=== PATIENT | female | born 1955 | race Two or more races ===

== ENCOUNTER 2018-02-23 20:56 | Observation (INO) | payer MEDICARE ==
[~2018-02-23] VITALS: Ht 162.6 cm; Wt 101.2 kg
[2018-02-23 21:37] LABS: BASOPHILS # (AUTO) 0.1 (0.0-0.1); BASOPHILS % 0.7 % (0.0-1.0); EOSINOPHILS # (AUTO) 0.3 (0.0-0.4); HEMATOCRIT 41.8 % (34.2-44.1); HEMOGLOBIN 13.4 g/dL (12.0-16.0); LYMPHOCYTES # (AUTO) 3.7 (1.0-3.2); LYMPHOCYTES % 41.2 % (18.0-39.1); MEAN CORPUSCULAR HEMOGLOBIN 26.2 pg (28-32); MEAN CORPUSCULAR HGB CONC 32.1 g/dL (31-35); MEAN CORPUSCULAR VOLUME 81.8 fL (81-99); MONOCYTES # (AUTO) 0.6 (0.2-0.8); NEUTROPHILS # (AUTO) 4.2 (2.1-6.9); NEUTROPHILS % 47.6 % (38.7-80.0); PLATELET COUNT 291 x10e3/uL (140-360); RED BLOOD COUNT 5.11 x10e6/uL (3.6-5.1)
[2018-02-23 21:39] LABS: BILIRUBIN,URINE NEGATIVE (NEGATIVE); CLARITY,URINE SL CLOUDY (CLEAR); COLOR,URINE YELLOW (YELLOW); KETONES,URINE NEGATIVE (NEGATIVE); LEUKOCYTE ESTERASE ,URINE TRACE (NEGATIVE); NITRITE,URINE NEGATIVE (NEGATIVE); PROTEIN,URINE DIPSTICK NEGATIVE (NEGATIVE); URINE UROBILINOGEN 0.2 mg/dL (0.2 - 1)
[2018-02-23 21:50] LABS: ALBUMIN 3.9 g/dL (3.5-5.0); ALBUMIN/GLOBULIN RATIO 1.1 (0.8-2.0); ANION GAP 11.2 mmol/L (8-16); CALCIUM 11.5 mg/dL (8.4-10.2); CREATININE, SERUM 1.08 mg/dL (0.57-1.11); POTASSIUM 4.2 mmol/L (3.5-5.1)
--- NOTE | 2018-02-23 21:53 | Diagnostic Imaging Report ---
EXAMINATION: Head CT HISTORY: Altered mental status, syncope COMPARISON: None. TECHNIQUE: Multidetector axial images were obtained without contrast from the foramen magnum to the vertex . The images were reconstructed using brain and bone algorithms. Thin section brain images were reformatted into coronal and sagittal planes. Intravenous contrast: None. Motion/streaking artifact limits the evaluation of the skull base and posterior cranial fossa. FINDINGS: Parenchyma: 1. No abnormal densities. 2. No mass or hemorrhage. No CT evidence of acute territorial vascular insult. Extra-axial spaces:No abnormal density. No extra-axial fluid collections Brain volume: Normal for age. Ventricles: No hydrocephalus or displacement. Arteries: No density suggestive of thrombus. Dural sinuses: No abnormal density. Extra-axial spaces: No abnormal density. Foramen magnum: No Chiari malformation. Possible upper cervical spinal canal narrowing, only partially visualized, this may be artifactual due to positioning. Sella: No obvious mass. Paranasal/mastoid sinuses: Imaged portions unremarkable. Skull/Scalp: No lytic or blastic lesions. No fractures. IMPRESSION: No intracranial abnormalities. Possible narrowing of the upper cervical spinal canal. Signed by: Dr. Smita Felix M.D. on 02/23/2018 9:49 PM
[2018-02-23 21:56] LABS: CREATINE KINASE MB 13.9 ng/mL (0-5.0)
[2018-02-23 21:58] LABS: EPITHELIAL CELLS,URINE FEW /LPF; MUCUS,URINE MODERATE (RARE); WBC,URINE (MAN) 0-5 /HPF (0-5)
--- NOTE | 2018-02-23 22:01 | Diagnostic Imaging Report ---
EXAMINATION: CHEST SINGLE (PORTABLE) INDICATION: Syncopal episode COMPARISON: None FINDINGS: TUBES and LINES: None. LUNGS: Lungs are well inflated. Lungs are clear. There is mild prominence of the central pulmonary vasculature, consistent with pulmonary venous congestion. PLEURA: No pleural effusion or pneumothorax. HEART AND MEDIASTINUM: The cardiomediastinal silhouette is unremarkable. BONES AND SOFT TISSUES: No acute osseous lesion. Degenerative changes of the right acromioclavicular joint Soft tissues are unremarkable. UPPER ABDOMEN: No free air under the diaphragm. IMPRESSION: No acute thoracic abnormality. Signed by: Dr. Pako Fonseca M.D. on 02/23/2018 9:57 PM
[2018-02-23] MEDS ORDERED: ASPIRIN 81 MG CHEW TAB PO ONE (22:30)
[2018-02-23] MEDS ORDERED: ONDANSETRON HCL INJ 2 MG/ML VIAL IV PRN (22:30)
--- OUTSIDE RECORDS SUMMARY | 2018-02-23 22:45 | XMS REPORT ---
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 Allergies, Adverse Reactions, Alerts This patient has no known allergies or adverse reactions. Medications This patient has no known medications. Results Test Description Test Time Test Comments Text Results Atomic Results Result Comments CT BRAIN WO [place] [address] Patient Name: DANETTE PANTOJA MR #: [id number] : 1955 Age/Sex: 62/F Req #: [id number] Adm Physician: Ordered by: ZEINAB DORADO MD Report #: [id number] Location: ER Room/Bed: ___ Procedure: [id number] CT/CT BRAIN WO Exam Date: 02/23/18 Exam Time: 2134 REPORT STATUS: Signed EXAMINATION: Head CT HISTORY: Altered mental status, syncope COMPARISON: None. TECHNIQUE: Multidetector axial images were obtained without contrast from the foramen magnum to the vertex . The images were reconstructed using brain and bone algorithms. Thin section brain images were reformatted into coronal and sagittal planes. Intravenous contrast: None. Motion/streaking artifact limits the evaluation of the skull base and posterior cranial fossa. FINDINGS: Parenchyma: 1. No abnormal densities. 2. No mass or hemorrhage. No CT evidence of acute territorial vascular insult. Extra-axial spaces:No abnormal density. No extra-axial fluid collections Brain volume: Normal for age. Ventricles: No hydrocephalus or displacement. Arteries: No density suggestive of thrombus. Dural sinuses: No abnormal density. Extra-axial spaces: No abnormal density. Foramen magnum: No Chiari malformation. Possible upper cervical spinal canal narrowing, only partially visualized, this may be artifactual due to positioning. Sella: No obvious mass. Paranasal/mastoid sinuses: Imaged portions unremarkable. Skull/Scalp: No lytic or blastic lesions. No fractures. IMPRESSION: No intracranial abnormalities. Possible narrowing of the upper cervical spinal canal. Signed by: Dr. Kaleigh Felix M.D. on 02/23/2018 9:49 PM Dictated By: KALEIGH FELIX MD 48 COPY TO: ZEINAB DORADO MD CHEST SINGLE (PORTABLE) [place] [address] Patient Name: DANETTE PANTOJA MR #: [id number] : 1955 Age/Sex: 62/F Req #: [id number] Adm Physician: Ordered by: ZEINAB DORADO MD Report #: [id number] Location: ER Room/Bed: ___ Procedure: [id number] DX/CHEST SINGLE (PORTABLE) Exam Date: 02/23/18 Exam Time: 2134 REPORT STATUS: Signed EXAMINATION: CHEST SINGLE (PORTABLE) INDICATION: Syncopal episode COMPARISON: None FINDINGS: TUBES and LINES: None. LUNGS: Lungs are well inflated. Lungs are clear. There is mild prominence of the central pulmonary vasculature, consistent with pulmonary venous congestion. PLEURA: No pleural effusion or pneumothorax. HEART AND MEDIASTINUM: The cardiomediastinal silhouette is unremarkable. BONES AND SOFT TISSUES: No acute osseous lesion. Degenerative changes of the right acromioclavicular joint Soft tissues are unremarkable. UPPER ABDOMEN: No free air under the diaphragm. IMPRESSION: No acute thoracic abnormality. Signed by: Dr. Pako Fonseca M.D. on 02/23/2018 9:57 PM Dictated By: PAKO WELLINGTON MD 56 Transcribed By: SHAILESH on 02/23/182156 COPY TO: ZEINAB DORADO MD
[2018-02-23] MEDS ORDERED: PREDNISONE5 MG PO (22:58)
[2018-02-23] MEDS ORDERED: ULTRAM 50MG50 MG PO (22:58)
[2018-02-23] MEDS ORDERED: ATORVASTATIN CA20 MG PO (22:58)
[2018-02-23] MEDS ORDERED: PROAIR HFA INH8.5 GM INH (22:58)
[2018-02-23] MEDS ORDERED: UMECLIDINIUM INH (23:06)
[2018-02-23] MEDS ORDERED: TRAMADOL HCL 50 MG TAB PO PRN (23:30)
[2018-02-23] MEDS ORDERED: ALBUTEROL SULFATE HFA 8GM INHALATION AEROSOL INH PRN (23:30)
[2018-02-24] VITALS (9 sets, daily range): BP systolic 100–133; BP diastolic 57–94
[2018-02-24 07:21] LABS: BASOPHILS # (AUTO) 0.1 (0.0-0.1); BASOPHILS % 0.6 % (0.0-1.0); EOSINOPHILS # (AUTO) 0.3 (0.0-0.4); EOSINOPHILS % 3.5 % (0.0-6.0); HEMATOCRIT 40.1 % (34.2-44.1); HEMOGLOBIN 12.8 g/dL (12.0-16.0); LYMPHOCYTES # (AUTO) 3.7 (1.0-3.2); LYMPHOCYTES % 44.3 % (18.0-39.1); MEAN CORPUSCULAR HEMOGLOBIN 26.3 pg (28-32); MEAN CORPUSCULAR HGB CONC 31.9 g/dL (31-35); MEAN CORPUSCULAR VOLUME 82.5 fL (81-99); MONOCYTES # (AUTO) 0.7 (0.2-0.8); MONOCYTES % 8.2 % (4.4-11.3); NEUTROPHILS # (AUTO) 3.6 (2.1-6.9); NEUTROPHILS % 42.9 % (38.7-80.0); PLATELET COUNT 270 x10e3/uL (140-360); RED BLOOD COUNT 4.86 x10e6/uL (3.6-5.1); RED CELL DISTRIBUTION WIDTH 15.2 % (11.7-14.4)
[2018-02-24 07:46] LABS: ALBUMIN 3.4 g/dL (3.5-5.0); ALBUMIN/GLOBULIN RATIO 1.1 (0.8-2.0); ANION GAP 11.2 mmol/L (8-16); CALCIUM 10.5 mg/dL (8.4-10.2); CREATININE, SERUM 1.06 mg/dL (0.57-1.11); POTASSIUM 4.2 mmol/L (3.5-5.1)
[2018-02-24 08:07] LABS: CREATINE KINASE 302 IU/L (29-168)
[2018-02-24] MEDS: PREDNISONE 5 MG TAB PO SCH (08:52)
--- NOTE | 2018-02-24 12:18 | History and Physical ---
CHIEF COMPLAINT: Syncopal episode. HISTORY OF PRESENT ILLNESS: Patient is a 62-year-old female with history of rheumatoid arthritis and high calcium level. The patient apparently had an argument with her and subsequently passed out while she was sitting in the restroom on the toilet. The patient could not remember what happened. She did have one episode approximately 1 year ago where she had a complete workup, but they did not find any significant abnormality. The patient is currently stable. She had no complaint at this time. She had multiple preliminary workups in the emergency room. The laboratory workup otherwise unremarkable CBC. She had a slightly elevated CK level of 517. CK-MB is 13.4. Her troponin I is negative, however. Total protein is normal in the emergency room. The abnormality including a calcium level of 11.5. Patient was told that she had a high calcium level and she is supposed to get some treatment once a week; however, the patient does not know the cause. PAST MEDICAL HISTORY: Rheumatoid arthritis, hyperlipidemia, osteoarthritis, and COPD. PAST SURGICAL HISTORY: Nephrectomy possible on the right, for which she could not recall. SOCIAL HISTORY: Patient is a smoker. She does not use alcohol. No recreational drugs. ALLERGIES: NO KNOWN ALLERGIES. HOME MEDICATIONS: ProAir, Lipitor, prednisone, tramadol, and inhaler. PHYSICAL EXAMINATION VITAL SIGNS: Temperature is 98, blood pressure 100/59, pulse rate 50, respirations 18. GENERAL: The patient is not in acute distress. She is awake. HEENT: Normocephalic, atraumatic, anicteric. NECK: Supple grossly. PULMONARY: Diminished breath sounds. CARDIOVASCULAR: Bradycardia. ABDOMEN: Soft. Unremarkable. EXTREMITIES: No cyanosis or edema. NEUROLOGIC: There is no gross focal deficit. LABORATORY: Sodium is 139, potassium 4.2, chloride 106, bicarb 26, BUN 13, creatinine 1.0, glucose 140. WBC is 8.3, hemoglobin 12.8, hematocrit 40, platelets 270. Calcium level was 11.5. IMPRESSION 1. Syncope. 2. Episodic bradycardia. 3. Hypercalcemia. 4. Smoker. 5. Baseline blood pressure. PLAN: CT of the chest without IV contrast. MRI of the cervical spine without contrast due to possible narrowing of C spinal canal on CT of the brain. Carotid Doppler, echocardiogram. Consultation with Dr. David Nelson. Continue with home medication with some adjustment. DVT prophylaxis. Baby aspirin. Job#: [id number] VA
[2018-02-24 16:40] LABS: CREATINE KINASE 250 IU/L (29-168)
--- NOTE | 2018-02-24 17:21 | Consultation ---
DATE OF CONSULTATION: February 24, 2018 CARDIOLOGY CONSULTATION REASON FOR CONSULTATION: Syncope. HISTORY OF PRESENT ILLNESS: Mrs. Rachel Santana is a 62-year-old female who states that she came in to the emergency room via the paramedics after a witnessed syncopal episode by her family. Her daughter is at the bedside and provides most of this history. Her daughter reports that the patient complained of chest pain prior to the syncopal episode. She was sitting down watching TV and complained of her chest hurting. Shortly after that, she got up and was ambulating to the bathroom. A family member followed her and found her slumped over on the toilet. They also report her body shaking from head to toe at the same time. This episode lasted close to 1 hour. She reports a past medical history of a prior episode that was similar 2 years ago and also a stroke last year in December 2016. At this moment, the patient denies any chest pain, shortness of breath, palpitations, cough, dizziness, fever or chills. She states that she feels well. PAST MEDICAL HISTORY: Includes syncope, stroke, hyperlipidemia. REVIEW OF SYSTEMS: Negative, except as mentioned above. PAST SURGICAL HISTORY: Nephrectomy due to a kidney mass 9 years ago on the right side. 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 She has 4 children. She is a smoker of 3 to 4 cigarettes every day and is . FAMILY HISTORY: Noncontributory. PHYSICAL EXAMINATION VITALS: Temperature 96.5, pulse 50, respiratory rate 20. Blood pressure 100/59. Oxygen saturation 97% on room air. GENERAL: Alert and oriented times 3. Resting comfortably in the bed. Does not appear to be in any distress right now. NECK: Supple. No JVD noted. No carotid bruits. LUNGS: Clear to auscultation throughout. No wheezing. No rhonchi. No crackles. CARDIOVASCULAR: Regular rate and rhythm. Normal S1, S2. No S3 or S4 auscultated. ABDOMEN: Rounded, soft, nontender. EXTREMITIES: No edema. There are 2+ pedal pulses. CARDIOVASCULAR MEDICATIONS 1. Lovenox 40 mg subcutaneous daily. 2. Aspirin 81 p.o. daily. 3. Atorvastatin 20 p.o. daily. LABS: WBC 8.27, hemoglobin 12.8, hematocrit 40.1, platelets 270. Sodium 139, potassium 4.2, BUN 13, creatinine 1.06, creatine kinase 302, CK-MB 7.60, troponin 0.001. TSH 1.980. Brain CT with possible narrowing of the upper cervical spinal canal. Chest x-ray with no acute abnormalities. Carotid Doppler ordered. TELEMETRY: Sinus ritu. ASSESSMENT 1. Syncope episode. 2. Seizure-like activity. 3. Dyslipidemia. 4. History of cerebrovascular accident. 5. Smoker. RECOMMENDATIONS: Complete carotid ultrasound. Complete echocardiogram. Continue the above-listed cardiac medications. Maintain patient on telemetry at all times. The patient will need ischemic evaluation in the light of reported chest pain prior to event described above. Thank you, Dr. Flores, for this consultation and allowing us to participate in this patient's care. Dictated by Vi Aj NP. Job#: [id number]
[2018-02-24] MEDS: ACETAMINOPHEN 325 MG TAB PO PRN (17:24)
[2018-02-24] MEDS: ENOXAPARIN SOD INJ 40 MG/0.4 ML SYR SC SCH (17:24)
--- NOTE | 2018-02-24 20:04 | Diagnostic Imaging Report ---
EXAM: CT Chest WITHOUT contrast 02/24/2018 10:53 AM INDICATION: Smoker, high risk for lung cancer COMPARISON: None TECHNIQUE: Chest was scanned utilizing a multidetector helical scanner from the lung apex through the level of the adrenal glands without administration of IV contrast. Absence of intravenous contrast decreases sensitivity for detection of lymphadenopathy and vascular pathology. Coronal and sagittal reformations were obtained. Routine protocol was performed. IV CONTRAST: None RADIATION DOSE: Total DLP: 545.91 mGy*cm Estimated effective dose: (DLP x 0.014 x size factor) mSv COMPLICATIONS: None FINDINGS: LINES/ TUBES: None. LUNGS AND AIRWAYS: There is a 3 mm stone noted on series 3, image 24. The lungs are remarkable for focal scaring at the right middle lobe and lingula. No evidence of pulmonary masses. Airways are normal PLEURA: The pleural spaces are clear. HEART AND MEDIASTINUM: The thyroid gland is normal. No mediastinal, hilar or axillary lymphadenopathy. The heart is normal in size.. There is no pericardial effusion. UPPER ABDOMEN: Diffuse hepatic steatosis. There is a simple cyst visualized in segment 8 of the liver measuring 1.7 cm in diameter. There is focal fatty sparing adjacent to the round ligament. Patient is status post left nephrectomy. The right kidney is partially visualized without evidence of calyectasis and a single 3 mm stone in the upper pole of the right kidney. BONES: The visualized bony thorax is within normal limits. SOFT TISSUES: Unremarkable. IMPRESSION: 1. No evidence of acute intrathoracic abnormality. 2. No evidence of pulmonary masses or adenopathy. 3. 3 mm nodule in the right apex. Fleishner criteria does not support the follow-up of nodules under 4 mm. However, in high risk patients, CT of the chest in 6-12 months can be obtained. 4. Diffuse hepatic steatosis. 5. Right sided nephrolithiasis with calyectasis. Signed by: Dr. Pako Fonseca M.D. on 02/24/2018 8:00 PM
[2018-02-24] MEDS: ATORVASTATIN 20 MG TAB PO SCH (20:08)
[2018-02-25] VITALS (7 sets, daily range): BP systolic 106–137; BP diastolic 58–83
[2018-02-25 07:56] LABS: BASOPHILS # (AUTO) 0.1 (0.0-0.1); BASOPHILS % 0.7 % (0.0-1.0); EOSINOPHILS # (AUTO) 0.2 (0.0-0.4); EOSINOPHILS % 3.2 % (0.0-6.0); HEMATOCRIT 40.2 % (34.2-44.1); HEMOGLOBIN 12.8 g/dL (12.0-16.0); LYMPHOCYTES # (AUTO) 3.2 (1.0-3.2); LYMPHOCYTES % 42.3 % (18.0-39.1); MEAN CORPUSCULAR HEMOGLOBIN 26.6 pg (28-32); MEAN CORPUSCULAR HGB CONC 31.8 g/dL (31-35); MEAN CORPUSCULAR VOLUME 83.6 fL (81-99); MONOCYTES # (AUTO) 0.6 (0.2-0.8); MONOCYTES % 8.1 % (4.4-11.3); NEUTROPHILS # (AUTO) 3.4 (2.1-6.9); NEUTROPHILS % 44.9 % (38.7-80.0); PLATELET COUNT 258 x10e3/uL (140-360); RED BLOOD COUNT 4.81 x10e6/uL (3.6-5.1); RED CELL DISTRIBUTION WIDTH 15.4 % (11.7-14.4)
[2018-02-25 08:20] LABS: ALBUMIN 3.4 g/dL (3.5-5.0); ALBUMIN/GLOBULIN RATIO 1.1 (0.8-2.0); ANION GAP 11.1 mmol/L (8-16); CALCIUM 10.4 mg/dL (8.4-10.2); CREATININE, SERUM 0.98 mg/dL (0.57-1.11); POTASSIUM 4.1 mmol/L (3.5-5.1)
[2018-02-25] MEDS: PREDNISONE 5 MG TAB PO SCH (08:37)
[2018-02-25] MEDS: ASPIRIN 81 MG ENTERIC COATED PO SCH (08:37)
[2018-02-25] MEDS: UMECLIDINIUM 62.5 MCG INH SCH (09:00)
--- NOTE | 2018-02-25 10:23 | Progress Note ---
DATE: February 25, 2018 CARDIOLOGY PROGRESS NOTE CHIEF COMPLAINT: Syncope. SUBJECTIVE: She feels better today. She denies any chest pain or shortness of breath. No dizzy spells. OBJECTIVE VITAL SIGNS: Afebrile. Heart rate 87. Blood pressure 128/71. O2 sat is 98%. CARDIOVASCULAR: Regular rhythm. No gallops or murmurs. LUNGS: Clear to auscultation bilaterally. ABDOMEN: Soft. Bowel sounds heard adequately. Echocardiogram shows preserved ejection fraction. No major valvular abnormality. Hemoglobin is normal. Creatinine is normal. Cardiac enzymes are negative. Carotid duplex study does not reveal any significant carotid disease. TELEMETRY: Sinus rhythm. ASSESSMENT: Unstable angina with syncope. PLAN: Exercise nuclear stress test for further risk stratification in the morning. This was discussed with the patient and the family. They are agreeable for the same. The nature of syncope with accompanying chest pain is worrisome for ischemic etiology. Job#: [id number]
[2018-02-25] MEDS ORDERED: ALBUTEROL SULFATE HFA 8GM INHALATION AEROSOL INH PRN (12:15)
[2018-02-25] MEDS: ACETAMINOPHEN 325 MG TAB PO PRN ×2 (14:13→20:31)
[2018-02-25] MEDS: ENOXAPARIN SOD INJ 40 MG/0.4 ML SYR SC SCH (16:34)
[2018-02-25] MEDS: ATORVASTATIN 20 MG TAB PO SCH (20:27)
[2018-02-26 04:00] VITALS: BP 112/65
[2018-02-26 07:00] VITALS: BP 120/80
[2018-02-26 07:19] LABS: ANION GAP 9.8 mmol/L (8-16); BLOOD UREA NITROGEN 9 mg/dL (7-26); BUN/CREATININE RATIO 10 (6-25); CALCIUM 9.9 mg/dL (8.4-10.2); CARBON DIOXIDE 27 mmol/L (22-29); CHLORIDE 109 mmol/L (98-107); CREATININE, SERUM 0.89 mg/dL (0.57-1.11); EST GLOMERULAR FILTRATION RATE > 60 ML/MIN (60-); GLUCOSE 96 mg/dL (74-118); POTASSIUM 3.8 mmol/L (3.5-5.1); SODIUM 142 mmol/L (136-145)
[2018-02-26 07:45] VITALS: BP 120/80
[2018-02-26] MEDS ORDERED: REGADENOSON 0.4 MG/5 ML SYR IV ONE (08:14)
[2018-02-26] MEDS: UMECLIDINIUM 62.5 MCG INH SCH (09:00)
[2018-02-26] MEDS: ASPIRIN 81 MG ENTERIC COATED PO SCH (10:24)
[2018-02-26 11:13] VITALS: BP 133/81
[2018-02-26] MEDS: ACETAMINOPHEN 325 MG TAB PO PRN (14:35)
[2018-02-26 15:09] VITALS: BP 125/69
[2018-02-26] MEDS ORDERED: DIAZEPAM 5 MG TAB PO ONE (15:45)
[2018-02-26] MEDS: ENOXAPARIN SOD INJ 40 MG/0.4 ML SYR SC SCH (17:21)
--- NOTE | 2018-02-26 18:24 | Diagnostic Imaging Report ---
Exam: Cervical spine MRI without IV contrast History: Possible spinal canal stenosis, syncope, collapse Comparison studies: None Technique: Sagittal T1, T2 and IR, axial T2 and axial gradient echo Intravenous contrast: None Findings: Alignment: Cervical kyphosis centered at C4-C5 with mild degenerative anterolisthesis of C2 on C3, retrolisthesis of C4 on C5 and retrolisthesis of C5 on C6. Cervicomedullary junction: No abnormalities. Patent foramen magnum. Soft tissues: No T2 hyperintense inflammatory changes. Spinal cord: Normal in size and signal from the foramen magnum through T1. Vertebrae: No fractures, infection or neoplasm. Degenerative changes: Loss of T2 disc signal from C2 through C7. C2-C3: Mildly degenerated disc. Mild anterolisthesis of C2 on C3 with associated uncovered disc and small right central disc protrusion result in mild canal stenosis. Uncovertebral arthrosis and moderate left and mild right facet arthrosis result in severe left foraminal stenosis. No significant right foraminal stenosis. T2 hyperintense changes at the left facet related to synovitis. C3-C4: Moderately degenerated disc. Disc osteophyte complex with small central disc protrusion and thickened ligamentum flavum result in moderate canal stenosis. Mild to moderate bilateral foraminal stenosis due to uncovertebral and facet arthrosis. C4-C5: Moderately degenerated disc with mild degenerative endplate edema. Minimal retrolisthesis of C4-C5 with associated disc osteophyte complex, right central disc extrusion which may be ossified or calcified (low signal on the T2*GRE sequence) and mildly thickened ligamentum flavum result in severe canal stenosis. Severe left and moderate right foraminal stenosis due a disc osteophyte complex and uncovertebral arthrosis. C5-C6: Moderately degenerated disc. Moderate canal stenosis due to disc osteophyte complex. Severe bilateral foraminal stenosis due to disc osteophyte complex and uncovertebral arthrosis. C6-C7: Moderately degenerated disc with fatty replaced marrow endplate changes. Disc osteophyte complex and mildly thickened ligamentum flavum result in mild canal stenosis. Disc osteophyte complex and uncovertebral arthrosis result in left and mild/moderate right foraminal. C7-T1: Small asymmetric left disc bulge. Patent canal and foramina. T1-T2: Small central disc protrusion. Patent canal and foramina. IMPRESSION: 1. Moderately degenerated disks from C3 to C7. 2. Degenerative canal stenosis from C2 to C7; severe at C4-C5 and moderate at C3-C4 and at C5-C6. 3. Multilevel degenerative foraminal stenosis; severe left at C2-C3, severe left and moderate right at C4-C5, severe bilaterally at C5-C6 and moderate on the left at C6-C7. 4. Moderate left C2-C3 facet arthrosis with with associated mild synovitis.. Signed by: Dr. Rubin Vasquez M.D. on 02/26/2018 6:20 PM
--- NOTE | 2018-02-26 19:21 | Cardiology Report ---
DATE OF STUDY: February 26, 2018 PROCEDURE TITLE: Stress/rest single isotope SPECT imaging with exercise stress and gated SPECT imaging. INDICATIONS: Chest pain. PROCEDURE: Patient performed treadmill exercise using a Patrick protocol, exercising for 2 minutes 4 seconds to stage 1 and completing an estimated workload of 4.6 metabolic equivalents (METs). The test was terminated due to fatigue. The heart rate was 88 beats per minute at rest and increased to 146 beats per minute at peak exercise, which was 91% of the maximum predicted heart rate. The rest blood pressure was 112/61 and increased to 156/78 mmHg, which is a normal response. The patient did not develop any symptoms other than fatigue during the procedure. The resting electrocardiogram demonstrated normal sinus rhythm with nonspecific T-wave abnormalities. There were no ST-segment changes consistent with myocardial ischemia. Next, myocardial perfusion imaging was performed at rest following the injection of 33 mCi of tetrofosmin at peak exercise. The patient was injected with 11 mCi of tetrofosmin, and exercise was continued for 1 minute. Gated post-stress tomographic imaging was performed. FINDINGS: The overall quality of the study is fair. Attenuation artifact is present. Left ventricular cavity is noted to be normal size on the rest and stress studies. Next, SPECT images demonstrate homogeneous tracer distribution throughout the myocardium. Gated SPECT imaging reveals normal myocardial thickening and wall motion. The left ventricular ejection fraction is calculated to be greater than 70%. IMPRESSION: Myocardial perfusion imaging is normal. Overall left ventricular systolic function was normal without regional wall motion abnormalities. Poor exercise tolerance suggestive of deconditioning. Job#: [id number] EV MTDD
[2018-02-26 20:00] VITALS: BP 143/77
--- NOTE | 2018-02-26 20:04 | Progress Note ---
DATE: February 26, 2018 CARDIOLOGY PROGRESS NOTE SUBJECTIVE: Patient denies chest pain. She reports chronic dyspnea on exertion. No further episodes of syncope. OBJECTIVE VITAL SIGNS: Temperature 96.8 degrees, pulse 73, respiratory rate 20, blood pressure 125/69, oxygen saturation 96% on room air. GENERAL: Obese woman in no acute distress, awake and alert. LUNGS: Clear to auscultation bilaterally. No wheezes or crackles. CARDIOVASCULAR: Normal rate, regular rhythm. No murmur. Normal S1 and S2. ABDOMEN: Soft, nontender. EXTREMITIES: No edema. NEUROLOGIC: Nonfocal exam. CARDIAC MEDICATIONS 1. Lovenox 40 mg subcutaneous daily. 2. Aspirin 81 mg p.o. daily. 3. Atorvastatin 20 mg p.o. nightly. LABS: Sodium 142, potassium 3.8, chloride 109, CO2 27, BUN 9, creatinine 0.89. TELEMETRY: Normal sinus rhythm. IMPRESSION 1. Syncope. 2. Chest pain. 3. Rheumatoid arthritis. 4. Hyperlipidemia. 5. History of cerebrovascular accident. 6. Tobacco abuse. RECOMMENDATIONS: Nuclear stress test was performed today without evidence of ischemia; however, did reveal patient is deconditioned as she had a reduced exercise tolerance. No cardiac etiologies for patient's syncope have been identified. There was no hemodynamically significant stenosis on carotid Dopplers. Echocardiogram with preserved LV systolic function without evidence of valvular disease, and no arrhythmias have been identified on tele. Continue current cardiac medications. Consider alternate etiologies for patient's syncope. If patient continues to have chest pain, she may need further ischemic evaluation. However, no evaluation is indicated at this time. Please have patient follow up with Dr. Nelson in the office in 2 weeks. Job#: [id number] EV
[2018-02-26] MEDS: ATORVASTATIN 20 MG TAB PO SCH (21:52)
[2018-02-27] VITALS: BP 90/58
[2018-02-27 02:01] VITALS: BP 102/80
[2018-02-27 04:00] VITALS: BP 106/74
[2018-02-27 08:42] VITALS: BP 139/75
--- NOTE | 2018-02-27 09:29 | Discharge Summary ---
PCP: Dr. Juliann Flores. [employer]ATIONS [employer]: Dr. David Nelson. FINAL DIAGNOSES 1. Status post syncopal episode. 2. Chronic hypercalcemia. 3. Cervical spine moderate degenerative disk disease associated with degenerative canal stenosis without spinal cord compression. MEDICATIONS ON DISCHARGE: Resume home medications. IMAGING TESTS: As follows MRI of the C-spine: Moderate degenerative disk disease from C3-C7. Degenerative canal stenosis from C2-C7, severe at C4-C5, and moderate at C3-C4 and C5-C6. Multilevel degenerative foraminal stenosis severe at C2-C3, severe left and moderate right at C4-C5, and severe bilaterally at C5-C6, and moderate on the left at C6-C7. Moderate left C2-C3 facet arthrosis with associated mild synovitis. Nuclear stress test negative. CT chest due to hypercalcemia showed no evidence of acute intrathoracic abnormality. Diffuse hepatic steatosis. Brain CT, chest x-ray, carotid Doppler, echocardiogram otherwise unremarkable without any significant abnormal finding. HOSPITAL COURSE: This 62-year-old female had a sudden collapse, syncopal episode. The patient required full workup done. Her calcium was slightly elevated, which the patient stated has been going on for quite some time. The patient's calcium level is 9.9 today. On admission, it was 11.5. Her PTH is 41. Her TSH is normal at 1.9. AST and ALT slightly elevated at 65 and 86. The patient's renal function is normal. The complete blood count is normal as well. The patient had no symptoms while she was in the hospital. No increase in neck or lower back pain. No visual changes. No gross neurological deficit. Patient underwent stress test that was negative. The patient is stable. Discharge the patient home today. I strongly recommended the patient to follow with Dr. Flores, her PCP for at least a referral to a neurosurgeon in the network for an evaluation of the C-spine MRI result. The patient is otherwise stable. She will discharge home today. Follow up as instructed. Job#: [id number] CF
== END 2018-02-27 10:19 | disposition home or self-care (01) ==
LOC: ER 20:56 → ERHOLD 22:42 → IMCU 22:52
PROVIDERS: ADMIT Internal Medicine; ATTEND Internal Medicine
DX: R55 Syncope and collapse (principal); H54.8 Legal blindness, as defined in USA; J44.9 Chronic obstructive pulmonary disease, unspecified; M50.122 Cervical disc disorder at C5-C6 level with radiculopathy; Z86.73 Personal history of transient ischemic attack (TIA), and cerebral infarction without residual deficits; F41.9 Anxiety disorder, unspecified; M06.9 Rheumatoid arthritis, unspecified; R00.1 Bradycardia, unspecified; E83.52 Hypercalcemia; F17.210 Nicotine dependence, cigarettes, uncomplicated; I20.0 Unstable angina; E78.5 Hyperlipidemia, unspecified; R53.81 Other malaise; K76.0 Fatty (change of) liver, not elsewhere classified
CPT/HCPCS: 36415 ×4; 70450; 71045; 71250; 72141; 78452; 80048; 80053 ×3; 81001; 82550 ×2; 82552 ×2; 82553 ×2; 82948; 83519; 83970; 84443; 84484 ×2; 85025 ×3; 93005; 93017; 93306; 93880; 99284; A9502; G0378 ×5; J1650 ×4; J2405; J7512 ×2